=== PATIENT | male | born 1945 | race Caucasian/White ===

== ENCOUNTER → 2024-07-14 18:58 | Outpatient (REF) | payer OTHER, SELFPAY | LOC: MRI 3T 18:58 | PROVIDERS: ATTENDING PHYSICIAN Family Medicine | DX: R42 Dizziness and giddiness (principal) | CPT/HCPCS: 70553; A9575 ==

== ENCOUNTER → 2024-07-25 12:06 | Outpatient (REF) | payer OTHER, SELFPAY | LOC: PAVMRI 12:06 | PROVIDERS: ATTENDING PHYSICIAN Orthopaedic Surgery | DX: M70.62 Trochanteric bursitis, left hip (principal) | CPT/HCPCS: 73721 ==

== ENCOUNTER → 2025-04-20 13:33 | Outpatient (REF) | payer OTHER, SELFPAY | LOC: HWRAD 13:33 | PROVIDERS: ATTENDING PHYSICIAN Family Medicine | DX: M25.512 Pain in left shoulder (principal) | CPT/HCPCS: 73030 ==